=== PATIENT | male | born 1960 | race Caucasian/White ===

== ENCOUNTER 2020-10-05 12:53 | Observation (INO) | payer OTHER, SELFPAY ==
[2020-10-05] VITALS (7 sets, daily range): BP systolic 135–172; BP diastolic 84–94; PULSE 70–99; RESP 15–20; TEMP 36.9; O2SAT 80–96; BMI 31.5
--- NOTE | 2020-10-05 13:32 | XR_ITS ---
WS: [id number] Portable AP upright chest, 10/05/2020 Clinical Data: chest pain Comparison: None. Findings: No nodules, masses or effusions are seen. The heart is normal. The pulmonary vascularity is not increased. No pneumonia or pneumothorax is seen. XR/XR chest 1V portable [id number] Impression: Negative chest.
--- NOTE | 2020-10-05 13:32 | ECG_ITS ---
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 Measurements Intervals [place] Rate: 105 P: 46 AL: 145 QRS: 1 QRSD: 94 T: 29 QT: 314 QTc: 416 Interpretive Statements SINUS TACHYCARDIA WITH OCCASIONAL VENTRICULAR PREMATURE COMPLEXES POSSIBLE LEFT ATRIAL ENLARGEMENT [-0.1mV P WAVE IN V1/V2] ABNORMAL RHYTHM ECG No previous ECG available for comparison Electronically Signed On 10-07-2020 17:17:45 CDT by Salvador Reno M.D. [id number]
[2020-10-05 14:40] LABS: Basophils # 0.1 10^3/uL (0.0-0.1); Basophils % 0.8 %; Eosinophils % 0.1 %; Hematocrit 47.6 % (42.0-52.0); Hemoglobin 15.9 g/dL (11.7-16.6); Lymphocytes # 1.5 10^3/uL (0.8-4.8); Lymphocytes % 9.1 %; Mean Corpuscular HGB Conc 33.4 g/dL (30.0-36.0); Mean Corpuscular Hemoglobin 30.2 pg (28.0-34.0); Mean Corpuscular Volume 90.3 fL (80-94); Mean Platelet Volume 9.6 fL (7.4-10.4); Monocytes % 6.1 %; Neutrophils # 13.72 10^3/uL (1.8-7.7); Neutrophils % 83.3 %; Nucleated Red Blood Cells % 0 %; Platelet Count 248 10^3/cmm (130-400); Red Blood Count 5.27 10^6/uL (4.1-5.3); Red Cell Distribution Width 14.1 % (12.1-15.1); White Blood Count 16.5 10^3/uL (4.0-10.0)
[2020-10-05 15:00] LABS: Alanine Aminotransferase 22 U/L (0-41); Albumin Level 4.4 g/dL (3.5-5.2); Alkaline Phosphatase 64 IU/L (40-130); Anion Gap 17.2 (5-19); Aspartate Amino Transferase 20 U/L (0-40); Blood Urea Nitrogen 12 mg/dL (6-20); Calcium 10.8 mg/dL (8.5-10.5); Carbon Dioxide 27 mmol/L (22-29); Chloride 100 mmol/L (98-107); Globulin 2.1 g/dL (1.3-4.6); Glomerular Filtration Rate 41.5 mL/min (90-130); Glucose 98 mg/dL (65-115); Osmolality Calculated 290 mOsm/kg (285-295); Potassium 4.2 mmol/L (3.5-5.1); Sodium 140 mmol/L (136-145); Total Bilirubin 1.1 mg/dL (0.15-1.2); Total Protein 6.5 g/dL (6.6-8.7)
[2020-10-05 15:05] LABS: Troponin(5th) Baseline 55 ng/L (0-15)
[2020-10-05 17:02] LABS: Troponin 5 2HR 46.11 ng/L (0-15)
[2020-10-05 17:05] LABS: Troponin 5 2HR Delta -8.89 ABS# (0-10)
--- NOTE | 2020-10-05 17:37 | W.ED.ARRPALP ---
Documented by User: Mike Jiang DO 10/06/20 08:18 HPI - Arrhythmia/Palpitations History of Present Illness: HPI narrative: 60-year-old male presents emergency room complaining of weakness dizziness left-sided chest pain. He got up earlier this morning was working outside during the course of his work began to have chest discomfort radiating into his left side of his chest. He was weak and dizzy at various times he had to stop working. Chest pain actually increased to the point where he had to go into the house and began resting. It took approximately 2 hours after he stopped any efforts that the chest pain resolved completely. He had noticed for the previous 2 months he did note a significant decrease in stamina with activities he also noticed some episodes of irregular heartbeat with these episodes. He never had any chest discomfort with those episodes however. Today's episode was significantly more intense. Patient usually does not interact with any healthcare providers and has no significant medical history is on no prescription medications and no significant past medical diagnoses. Has not previously had any heart evaluation. MD complaint: skipped beats , palpitations and irregular heart beat Onset (ago): hour(s) Duration: constant and now resolved Severity: severe Context: occurred during exertion Associated symptoms: Deny anxiety, cough, diaphoresis, muscle cramps, nausea, paresthesias, pre-syncope, sense of impending doom, short of breath, syncope or vomiting Review of Systems Const: Denies: diaphoresis ENMT: Denies: throat pain, ear or mastoid pain, nasal discharge or nasal congestion Card: Denies: syncope or pre-syncope Resp: Denies: dyspnea, productive cough or non-productive cough GI: Denies: nausea or vomiting : Denies: flank pain, dysuria, urinary frequency or urinary urgency Musc: Denies: muscle cramps Skin/Breast: Denies: rash or pruritus Psych: Denies: anxiety PFSH ED PFSH: Medical History Chronic cough Chronic shoulder pain GERD (gastroesophageal reflux disease) GI bleeding History of alcohol abuse PUD (peptic ulcer disease) Recurrent headache Resting tremor Surgical History H/O shoulder surgery L Family History Other Diabetes Social History Smoking and tobacco status: never smoked Alcohol intake: current Alcohol intake frequency: few times a week Alcohol use comment: Formerly heavy intake, less in the last year Substance/Drug Use: never Lives independently: Yes Household members: spouse Marital status: Physical Exam Const: COMMON NORMALS: no acute distress GENERAL APPEARANCE: cooperative and comfortable ORIENTATION/CONSCIOUSNESS: Yes awake, Yes oriented to person, Yes oriented to place and Yes oriented to time HENMT: COMMON NORMALS: normocephalic, atraumatic, hearing grossly normal bilaterally and external ears normal HEAD & SCALP: normocephalic and atraumatic EXTERNAL EAR: Yes external ears normal Neck/C-Spine: COMMON NORMALS: no JVD Resp: COMMON NORMALS: normal respiratory effort, No retractions, No use of accessory muscles and clear to auscultation bilaterally AUSCULTATION: clear to auscultation bilaterally Cardio: COMMON NORMALS: no JVD, regular rate, regular rhythm and No murmurs present (Cardio) RATE: regular rate RHYTHM: regular rhythm GI: COMMON NORMALS: Soft to palpation and No hepatosplenomegaly present AUSCULTATION: Yes normoactive bowel sounds PALPATION: Yes Soft to palpation, No Tenderness to palpation present (GI), No Guarding due to palpation present (GI) and Yes No hepatosplenomegaly present Extremity: COMMON NORMALS: normal to inspection, capillary refill normal, no clubbing, cyanosis or edema, no calf tenderness and no pedal edema Neuro: SENSORIUM/ORIENTATION: Yes oriented to person, Yes oriented to place and Yes oriented to time Skin: COMMON NORMALS: no rashes or lesions noted GENERAL SKIN EXAM: no rashes or lesions noted Course Vital Signs: Vital signs: Vital Signs Temperature 97.9 F 10/06/20 15:35 Pulse Rate 65 10/06/20 15:35 Respiratory Rate 18 10/06/20 15:35 Blood Pressure 120/83 10/06/20 15:35 Pulse Oximetry 93 10/06/20 15:35 MDM - Arrhythmia/Palpitations MDM Narrative: Medical decision making narrative: Patient second troponin is slightly down however he has history of extremely concerning. It sounds as if he has had an anginal equivalent for the last couple of months and now has had a more significant episode today.Patient given aspirin nitro he does have a an acute kidney injury as well although we do not have a baseline creatinine to go off of. Will admit consult cardiology. Lab Data: Labs: Lab Results 10/05/20 10/05/20 10/05/20 Range/Units 14:29 14:29 14:29 WBC 16.5 H (4.0-10.0) 10^3/ uL RBC 5.27 (4.1-5.3) 10^6/u L Hgb 15.9 (11.7-16.6) g/dL Hct 47.6 (42.0-52.0) % MCV 90.3 (80-94) fL MCH 30.2 (28.0-34.0) pg MCHC 33.4 (30.0-36.0) g/dL RDW 14.1 (12.1-15.1) % Plt Count 248 (130-400) 10^3/c mm MPV 9.6 (7.4-10.4) fL Neut % (Auto) 83.3 % Lymph % (Auto) 9.1 % [place] % (Auto) 6.1 % Eos % (Auto) 0.1 % Baso % (Auto) 0.8 % Neut # (Auto) 13.72 H (1.8-7.7) 10^3/u L Lymph # (Auto) 1.5 (0.8-4.8) 10^3/u L [place] # (Auto) 1.0 H (0.2-0.9) 10^3/u L Eos # (Auto) 0.0 (0.0-0.8) 10^3/u L Baso # (Auto) 0.1 (0.0-0.1) 10^3/u L Nucleated RBC % (a uto) 0 % Nucleated RBCs # 0.0 /100WBC Sodium 140 (136-145) mmol/L Potassium 4.2 (3.5-5.1) mmol/L Chloride 100 (98-107) mmol/L Carbon Dioxide 27 (22-29) mmol/L Anion Gap 17.2 (5-19) BUN 12 (6-20) mg/dL Creatinine 1.7 H (0.7-1.2) mg/dL GFR Calculation 41.5 L (90-130) mL/min Glucose 98 (65-115) mg/dL Estimat Average Gl ucose Hemoglobin A1c (4.0-6.0) % Calculated Osmolal ity 290 (285-295) mOsm/k g Calcium 10.8 H (8.5-10.5) mg/dL Total Bilirubin 1.1 (0.15-1.2) mg/dL AST 20 (0-40) U/L ALT 22 (0-41) U/L Alkaline Phosphata se 64 (40-130) IU/L Creatine Kinase (39-308) U/L Troponin T Baselin e 55 H (0-15) ng/L Troponin T 120 Min lower [place] (0-15) ng/L Delta Troponin T (0-10) ABS# Total Protein 6.5 L (6.6-8.7) g/dL Albumin 4.4 (3.5-5.2) g/dL Globulin 2.1 (1.3-4.6) g/dL Triglycerides (0-150) mg/dL Cholesterol (0-200) mg/dL LDL Cholesterol, C alc (50-129) mg/dL HDL Cholesterol (60-100) mg/dL LDL/HDL Ratio (0.00-3.22) RATI O Cholesterol/HDL Ra nicolasa (1.0-5.00) mg/dL 10/05/20 10/05/20 10/05/20 Range/Units 14:29 14:29 16:24 WBC (4.0-10.0) 10^3/ uL RBC (4.1-5.3) 10^6/u L Hgb (11.7-16.6) g/dL Hct (42.0-52.0) % MCV (80-94) fL MCH (28.0-34.0) pg MCHC (30.0-36.0) g/dL RDW (12.1-15.1) % Plt Count (130-400) 10^3/c mm MPV (7.4-10.4) fL Neut % (Auto) % Lymph % (Auto) % [place] % (Auto) % Eos % (Auto) % Baso % (Auto) % Neut # (Auto) (1.8-7.7) 10^3/u L Lymph # (Auto) (0.8-4.8) 10^3/u L [place] # (Auto) (0.2-0.9) 10^3/u L Eos # (Auto) (0.0-0.8) 10^3/u L Baso # (Auto) (0.0-0.1) 10^3/u L Nucleated RBC % (a uto) % Nucleated RBCs # /100WBC Sodium (136-145) mmol/L Potassium (3.5-5.1) mmol/L Chloride (98-107) mmol/L Carbon Dioxide (22-29) mmol/L Anion Gap (5-19) BUN (6-20) mg/dL Creatinine (0.7-1.2) mg/dL GFR Calculation (90-130) mL/min Glucose (65-115) mg/dL Estimat Average Gl ucose 111 Hemoglobin A1c 5.5 (4.0-6.0) % Calculated Osmolal ity (285-295) mOsm/k g Calcium (8.5-10.5) mg/dL Total Bilirubin (0.15-1.2) mg/dL AST (0-40) U/L ALT (0-41) U/L Alkaline Phosphata se (40-130) IU/L Creatine Kinase 391 H* (39-308) U/L Troponin T Baselin e (0-15) ng/L Troponin T 120 Min lower [place] 46.11 H (0-15) ng/L Delta Troponin T -8.89 L (0-10) ABS# Total Protein (6.6-8.7) g/dL Albumin (3.5-5.2) g/dL Globulin (1.3-4.6) g/dL Triglycerides 214 H (0-150) mg/dL Cholesterol 241 H (0-200) mg/dL LDL Cholesterol, C alc 145 H (50-129) mg/dL HDL Cholesterol 53 L (60-100) mg/dL LDL/HDL Ratio 2.74 (0.00-3.22) RATI O Cholesterol/HDL Ra nicolasa 4.55 (1.0-5.00) mg/dL Discharge Plan Discharge Patient Disposition: Admitted As Inpatient Admit Provider: Christian Mendez Clinical Impression: Chest pain, Troponin level elevated, Acute kidney injury, Leukocytosis Condition: Stable Coding Level of Care Code ED Student Worker for Chg Fwd Exam Comprehensive Documented by User: Domenico Gurrola MD 10/06/20 18:29 PFSH ED PFSH: Medical History Chronic cough Chronic shoulder pain GERD (gastroesophageal reflux disease) GI bleeding History of alcohol abuse PUD (peptic ulcer disease) Recurrent headache Resting tremor Surgical History H/O shoulder surgery L Family History Other Diabetes Social History Smoking and tobacco status: never smoked Alcohol intake: current Alcohol intake frequency: few times a week Alcohol use comment: Formerly heavy intake, less in the last year Substance/Drug Use: never Lives independently: Yes Household members: spouse Marital status: Course Vital Signs: Vital signs: Vital Signs Temperature 97.9 F 10/06/20 15:35 Pulse Rate 65 10/06/20 15:35 Respiratory Rate 18 10/06/20 15:35 Blood Pressure 120/83 10/06/20 15:35 Pulse Oximetry 93 10/06/20 15:35 MDM - Arrhythmia/Palpitations Lab Data: Labs: Lab Results 10/05/20 10/05/20 10/05/20 Range/Units 14:29 14:29 14:29 WBC 16.5 H (4.0-10.0) 10^3/ uL RBC 5.27 (4.1-5.3) 10^6/u L Hgb 15.9 (11.7-16.6) g/dL Hct 47.6 (42.0-52.0) % MCV 90.3 (80-94) fL MCH 30.2 (28.0-34.0) pg MCHC 33.4 (30.0-36.0) g/dL RDW 14.1 (12.1-15.1) % Plt Count 248 (130-400) 10^3/c mm MPV 9.6 (7.4-10.4) fL Neut % (Auto) 83.3 % Lymph % (Auto) 9.1 % [place] % (Auto) 6.1 % Eos % (Auto) 0.1 % Baso % (Auto) 0.8 % Neut # (Auto) 13.72 H (1.8-7.7) 10^3/u L Lymph # (Auto) 1.5 (0.8-4.8) 10^3/u L [place] # (Auto) 1.0 H (0.2-0.9) 10^3/u L Eos # (Auto) 0.0 (0.0-0.8) 10^3/u L Baso # (Auto) 0.1 (0.0-0.1) 10^3/u L Nucleated RBC % (a uto) 0 % Nucleated RBCs # 0.0 /100WBC Sodium 140 (136-145) mmol/L Potassium 4.2 (3.5-5.1) mmol/L Chloride 100 (98-107) mmol/L Carbon Dioxide 27 (22-29) mmol/L Anion Gap 17.2 (5-19) BUN 12 (6-20) mg/dL Creatinine 1.7 H (0.7-1.2) mg/dL GFR Calculation 41.5 L (90-130) mL/min Glucose 98 (65-115) mg/dL Estimat Average Gl ucose Hemoglobin A1c (4.0-6.0) % Calculated Osmolal ity 290 (285-295) mOsm/k g Calcium 10.8 H (8.5-10.5) mg/dL Total Bilirubin 1.1 (0.15-1.2) mg/dL AST 20 (0-40) U/L ALT 22 (0-41) U/L Alkaline Phosphata se 64 (40-130) IU/L Creatine Kinase (39-308) U/L Troponin T Baselin e 55 H (0-15) ng/L Troponin T 120 Min lower [place] (0-15) ng/L Delta Troponin T (0-10) ABS# Total Protein 6.5 L (6.6-8.7) g/dL Albumin 4.4 (3.5-5.2) g/dL Globulin 2.1 (1.3-4.6) g/dL Triglycerides (0-150) mg/dL Cholesterol (0-200) mg/dL LDL Cholesterol, C alc (50-129) mg/dL HDL Cholesterol (60-100) mg/dL LDL/HDL Ratio (0.00-3.22) RATI O Cholesterol/HDL Ra nicolasa (1.0-5.00) mg/dL 10/05/20 10/05/20 10/05/20 Range/Units 14:29 14:29 16:24 WBC (4.0-10.0) 10^3/ uL RBC (4.1-5.3) 10^6/u L Hgb (11.7-16.6) g/dL Hct (42.0-52.0) % MCV (80-94) fL MCH (28.0-34.0) pg MCHC (30.0-36.0) g/dL RDW (12.1-15.1) % Plt Count (130-400) 10^3/c mm MPV (7.4-10.4) fL Neut % (Auto) % Lymph % (Auto) % [place] % (Auto) % Eos % (Auto) % Baso % (Auto) % Neut # (Auto) (1.8-7.7) 10^3/u L Lymph # (Auto) (0.8-4.8) 10^3/u L [place] # (Auto) (0.2-0.9) 10^3/u L Eos # (Auto) (0.0-0.8) 10^3/u L Baso # (Auto) (0.0-0.1) 10^3/u L Nucleated RBC % (a uto) % Nucleated RBCs # /100WBC Sodium (136-145) mmol/L Potassium (3.5-5.1) mmol/L Chloride (98-107) mmol/L Carbon Dioxide (22-29) mmol/L Anion Gap (5-19) BUN (6-20) mg/dL Creatinine (0.7-1.2) mg/dL GFR Calculation (90-130) mL/min Glucose (65-115) mg/dL Estimat Average Gl ucose 111 Hemoglobin A1c 5.5 (4.0-6.0) % Calculated Osmolal ity (285-295) mOsm/k g Calcium (8.5-10.5) mg/dL Total Bilirubin (0.15-1.2) mg/dL AST (0-40) U/L ALT (0-41) U/L Alkaline Phosphata se (40-130) IU/L Creatine Kinase 391 H* (39-308) U/L Troponin T Baselin e (0-15) ng/L Troponin T 120 Min lower [place] 46.11 H (0-15) ng/L Delta Troponin T -8.89 L (0-10) ABS# Total Protein (6.6-8.7) g/dL Albumin (3.5-5.2) g/dL Globulin (1.3-4.6) g/dL Triglycerides 214 H (0-150) mg/dL Cholesterol 241 H (0-200) mg/dL LDL Cholesterol, C alc 145 H (50-129) mg/dL HDL Cholesterol 53 L (60-100) mg/dL LDL/HDL Ratio 2.74 (0.00-3.22) RATI O Cholesterol/HDL Ra nicolasa 4.55 (1.0-5.00) mg/dL Discharge Plan Discharge Patient Disposition: Admitted As Inpatient Admit Provider: Christian Mendez Clinical Impression: Chest pain, Troponin level elevated, Acute kidney injury, Leukocytosis Condition: Stable Coding Level of Care Code ED Student Worker for [place] Fwd Exam Comprehensive
[2020-10-05] MEDS: aspirin 81 mg Chew Tablet 324 MG PO (18:19)
[2020-10-05] MEDS: nitroglycerin 1 gm/inch oint Pkt 1 INCH TOPICAL (18:20)
[2020-10-05] MEDS: sodium chloride 0.9% 1,000 ML 999 ML IV (18:24)
--- NOTE | 2020-10-05 19:32 | ECG_ITS ---
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 Measurements Intervals [place] Rate: 83 P: 54 [place]: 146 QRS: 22 QRSD: 87 T: 32 QT: 363 QTc: 427 Interpretive Statements SINUS RHYTHM Compared to ECG 10/05/2020 13:07:07 Sinus tachycardia no longer present Ventricular premature complex(es) no longer present Electronically Signed On 10-07-2020 17:24:39 CDT by Salvador Reno M.D. [email or web address]/[id number]
--- NOTE | 2020-10-05 19:48 | P.HP_ITS ---
Providers/Chief Complaint Primary Care Provider: Val Chisholm MD Chief Complaint: CP W/EXERTION, HTN, IRR HEART RATE History of Present Illness Pleasant 60-year-old gentleman with history of longstanding GERD, history of PUD, GI bleeding, chronic/recurrent cough, remote history of heavy alcohol intake, substantially reduced about a year ago, recurrent headache for which he takes Excedrin sometimes 3-4 times a day for GERD he takes Tums daily, sometimes multiple times a day, was never investigated by upper endoscopy, with chronic r esting tremor, is accompanied by his in ER after an episode of chest pain while working in the yard that lasted about 2 hours despite stopping all activity earlier today, severe, initially started on the left side with chest pressure and pain together, subsequently migrating to the right side. It went away on its own. He did not take any thing to relieve the pain. He reports that over the last 2 months he has been getting increasingly fatigued with exertion, with some palpitations as well. He denies lower extremity swelling or orthopnea. He is a never smoker. Blood pressures noted elevated in ER, although he says previously up until about a year ago blood pressures were checked regularly and were good. He has not monitored them in about a year. He states he and his measured his blood pressure at home today prior to coming to ER, and it was showing high, and warning about irregular heartbeat. He reports the symptoms did not necessarily feel like heartburn. Although he did have quite a few cookies day before, and did have quite a bit of heartburn which he usually gets from the oil in the cookies. He denies any fever, chills, sore throat, runny nose, sneezing. No nausea vomiting or diarrhea. In ER BP 151/94, HR 99 initially, 74 subsequently, respiratory rate 18, temp 98.4, saturation 94% on room air. Chest x-ray is unremarkable, EKG is noted unremarkable, troponin at baseline 55, at 2 hours 46.11. Creatinine noted is 1.7 with not entirely clear baseline, back in 2016 creatinine 1.3. He received aspirin, nitroglycerin paste. 1 L fluid bolus. Review of Systems Const: Denies: fever(s), chills, body aches or malaise Eyes: Denies: change in vision or eye redness ENMT: Denies: throat pain, oral sores or ear or mastoid pain Card: Reports: chest pain, palpitations and dyspnea on exertion; Denies: edema, swelling of feet/ankles, pre-syncope or orthopnea Resp: Denies: dyspnea, productive cough, change in phlegm color or hemoptysis GI: Reports: heartburn; Denies: abdominal pain, nausea, vomiting, diarrhea, constipation, hematochezia or melena : Denies: flank pain, difficulty urinating, urinary frequency or hematuria Musc: Denies: back pain, joint swelling or joint redness Skin/Breast: Denies: rash, sores or new lesions Neuro: Denies: headache(s), numbness in extremities, weakness in extremities, dizziness, confusion or seizure-like activity Endo: Denies: polyuria or polydipsia Dwain/Lymph: Denies: easy bleeding or purpura All/Imm: Denies: urticaria, throat swelling or tongue swelling Medications/Allergies Home Medications Medication Instructions Recorded Confirmed Last Taken Type No Known Home Medications 10/05/20 10/05/20 Unknown History Allergies Allergy/AdvReac Type Severity Reaction Status Date / Time No Known Allergies Allergy Unverified 10/05/20 17:33 PFSH Acute PFSH: Medical History (Updated 10/05/20 @ 20:06 by Christian Mendez MD) Chronic cough Chronic shoulder pain GERD (gastroesophageal reflux disease) GI bleeding History of alcohol abuse PUD (peptic ulcer disease) Recurrent headache Resting tremor Surgical History H/O shoulder surgery L Family History (Updated 10/05/20 @ 19:57 by Christian Mendez MD) Other Diabetes Social History (Updated 10/05/20 @ 19:58 by Christian Mendez MD) Smoking and tobacco status: never smoked Alcohol intake: current Alcohol intake frequency: few times a week Alcohol use comment: Formerly heavy intake, less in the last year Substance/Drug Use: never Lives independently: Yes Household members: spouse Marital status: Vitals/I&O/Wt Last Vital Signs Temp 98.4 F 10/05/20 13:02 Pulse 79 10/05/20 18:54 Resp 20 H 07/09/21 18:54 BP 158/93 10/05/20 18:54 Pulse Ox 80 L 10/05/20 18:54 Weight last 48 hrs Weight 99.79 kg Physical Exam Narrative: EXAM NARRATIVE: in the room Const: COMMON NORMALS: no acute distress and patient oriented x3 NUTRITIONAL APPEARANCE: overweight HENMT: COMMON NORMALS: oropharynx normal Neck/C-Spine: COMMON NORMALS: no JVD Resp: COMMON NORMALS: normal respiratory effort and clear to auscultation bilaterally AUSCULTATION: clear to auscultation bilaterally Cardio: COMMON NORMALS: no JVD, regular rhythm, S1 normal heart sound present, S2 normal heart sound present and No murmurs present (Cardio) RHYTHM: regular rhythm HEART SOUNDS: S1 normal heart sound present and S2 normal heart sound present GI: COMMON NORMALS: Normal to inspection, nondistended, normoactive bowel sounds present, Soft to palpation and non-tender PALPATION: Yes Soft to palpation Extremity: COMMON NORMALS: no joint enlargement and no pedal edema Neuro: COMMON NORMALS: patient oriented x3 and moves all extremities Skin: COMMON NORMALS: no rashes or lesions noted GENERAL SKIN EXAM: no rashes or lesions noted Data : 10/05/20 14:29 10/05/20 14:29 A&P Assessment and plan (1) Chest pain: Complete troponin and EKG series. Request TTE. Monitor on telemetry. Check D-dimer. Start PPI. Cardiology consultation obtained by ER physician, with concern with risk factors with overweight, noted elevated blood pressure in ER, with suspicious symptoms, consideration given to additional assessment/risk stratification possibly by coronary angiography. Check lipid profile. A1c. Monitor blood pressures. Check CK. Reports also some palpitations, says that blood pressure cuff read irregular at home, but does have chronic resting tremor, and this is also visible on the monitor currently. Status: Acute (2) Troponin level elevated: As above. Currently no chest pain. Troponin with moderate elevation, EKG unremarkable. Status: Acute (3) Acute kidney injury: Acute kidney injury with his chronic kidney disease. Appears likely chronic kidney disease, possibly secondary to undiagnosed hypertension. Creatinine 1.7. Requested kidney ultrasound. UA. Urine studies. CK. Takes Excedrin sometimes 3-4 times a day. Status: Acute (4) GERD (gastroesophageal reflux disease): Longstanding GERD, history of PUD, bleeding ulcers, never had upper endoscopy. Discussed with him to seek additional evaluation by upper endoscopy with PCP given his age, persistent symptoms of dyspepsia. He takes Tums multiple times a day. Start PPI. He verbalized understanding, will be seeking additional evaluation by EGD with his PCP. Status: Acute (5) Recurrent headache: Takes Excedrin 3-4 times a day. Status: Acute (6) Leukocytosis: Unclear cause for leukocytosis. He is afebrile. On initial vitals heart rate 99, sinus tachycardia, however, subsequent values in the 70s. May have been some dehydration after working outside. Possibly improved with 1 L bolus. He does also report chronic cough, longstanding GERD. Discussed with him possibility of recurrent aspiration events. No gross aspiration noted on x-ray, however, this could certainly be contributing to his chronic cough. Monitor for any changes in symptoms. He states for about 2 months he has been getting dyspneic/fatigue and on exertion. This appears not new symptoms. He gets recurrent headaches. Chronic cough. Otherwise denies muscle aches, chills, sore throat, runny nose Status: Acute (7) Chronic cough: Possibly secondary to GERD/reflux. Start PPI. He will be seeking additional assessment by endoscopy. Check D-dimer. May benefit from outpatient PFT. Continue follow-up with PCP. Status: Acute Attestations Medical Necessity Statement*: Place in observation for additional assessment and management following 2-hour chest episode prior to admission with risk factors of CAD, cardiology assessment in the setting of troponin elevation in the setting of acute kidney injury. Coding Level of Care Code Acute Electrical Manufacturing Technician for [facility] Diagnoses Chest pain R07.9 Troponin level elevated R77.8 Acute kidney injury N17.9 GERD (gastroesophageal reflux disease) K21.9 Recurrent headache R51.9 Leukocytosis D72.829 Chronic cough R05
[2020-10-05 20:18] LABS: Troponin 5 6HR 36.65 ng/L (0-15)
[2020-10-05 20:32] LABS: Chol HDL Ratio 4.55 mg/dL (1.0-5.00); Cholesterol 241 mg/dL (0-200); HDL Cholesterol 53 mg/dL (60-100); LDL Cholesterol Calculated 145 mg/dL (50-129); LDL HDL Ratio 2.74 RATIO (0.00-3.22); Triglycerides 214 mg/dL (0-150)
[2020-10-05 20:35] LABS: Creatine Phosphokinase 391 U/L (39-308)
[2020-10-05 20:36] LABS: D Dimer <= 0.27 ug/mIFEU (0-0.59)
[2020-10-05 21:18] LABS: Add Urine Microscopic? NO; Charge for UA Resulting for Rev
[2020-10-05 21:21] LABS: Bilirubin Urine Neg (Negative); Blood Urine Neg (Negative); Glucose Urine UA Norm (Normal); Ketones Urine Negative (Negative); Leukocyte Esterase Urine Negative (Negative); Nitrate Urine Negative (Negative); Protein Urine Neg (Negative); Specific Gravity, Urine 1.005 (1.005-1.030); Urine Appearance Clear (CLEAR); Urine Color Yellow (Yellow); Urobilinogen Urine Norm (Negative); pH Urine 7 (5-7)
[2020-10-05 21:37] LABS: Urine Creatinine 81 mg/dL (39-259); Urine Random Sodium 58 mmol/L
[2020-10-05] MEDS: metoprolol tartrate 25 mg Tablet 12.5 MG PO (22:40)
[2020-10-05] MEDS: sodium chloride 0.9% 1,000 ML 150 ML IV (22:40)
[2020-10-05] MEDS: pantoprazole DR 40 mg Tablet PO (22:40)
[2020-10-05 23:29] LABS: Estmated Average Glucose 111; Hemoglobin A1C 5.5 % (4.0-6.0)
[2020-10-06] VITALS (10 sets, daily range): BP systolic 105–147; BP diastolic 61–83; PULSE 61–70; RESP 13–26; TEMP 36.6–37.1; O2SAT 93–96
[2020-10-06] MEDS: sodium chloride 0.9% 1,000 ML 150 ML IV (05:13)
[2020-10-06 05:26] LABS: Basophils # 0.1 10^3/uL (0.0-0.1); Basophils % 1.1 %; Eosinophils # 0.1 10^3/uL (0.0-0.8); Eosinophils % 1.4 %; Hematocrit 40.6 % (42.0-52.0); Hemoglobin 13.3 g/dL (11.7-16.6); Lymphocytes # 1.4 10^3/uL (0.8-4.8); Lymphocytes % 15.2 %; Mean Corpuscular HGB Conc 32.8 g/dL (30.0-36.0); Mean Corpuscular Hemoglobin 30.2 pg (28.0-34.0); Mean Corpuscular Volume 92.1 fL (80-94); Mean Platelet Volume 9.8 fL (7.4-10.4); Monocytes # 0.8 10^3/uL (0.2-0.9); Monocytes % 8.2 %; Neutrophils # 6.89 10^3/uL (1.8-7.7); Neutrophils % 73.6 %; Nucleated Red Blood Cells % 0 %; Platelet Count 197 10^3/cmm (130-400); Red Blood Count 4.41 10^6/uL (4.1-5.3); Red Cell Distribution Width 14.4 % (12.1-15.1); White Blood Count 9.4 10^3/uL (4.0-10.0)
[2020-10-06 05:36] LABS: Anion Gap 12.4 (5-19); Blood Urea Nitrogen 13 mg/dL (6-20); Calcium 8.3 mg/dL (8.5-10.5); Carbon Dioxide 24 mmol/L (22-29); Chloride 108 mmol/L (98-107); Glomerular Filtration Rate 47.9 mL/min (90-130); Glucose 98 mg/dL (65-115); Osmolality Calculated 290 mOsm/kg (285-295); Potassium 4.4 mmol/L (3.5-5.1); Sodium 140 mmol/L (136-145)
--- NOTE | 2020-10-06 08:42 | P.CONIM_ITS ---
Providers/Reason For Consult Consulting Physician/Specialty*: Salvador Reno MD/Cardiology Reason for Consult*: Chest pain Requesting Physician: Dr Mendez Attending Physician: Christian Mendez Primary Care Provider: Val Chisholm MD History of Present Illness History of Present Illness Baldev Parham is a 60 year old male with past medical history of hypertension who presented with severe substernal chest pain yesterday. According to patient he was working in the yard when he started noticing substernal chest discomfort with some radiation to the left arm. This lasted for about 45 minutes. He did not have any significant pain in the past however he has been feeling low in energy and gets easily short of breath on exertion over the last few months. His blood pressure at presentation was elevated and systolic was 170s. EKG did not show ischemia. Initial troponin was elevated at 55 however trended down. Patient is chest pain-free at this time. Review of Systems Narrative: Const Denies: fever(s), chills, body aches or malaise Eyes Denies: change in vision or eye redness ENMT Denies: throat pain, oral sores or ear or mastoid pain Card Reports: chest pain, palpitations and dyspnea on exertion; Denies: edema, swelling of feet/ankles, pre-syncope or orthopnea Resp Denies: dyspnea, productive cough, change in phlegm color or hemoptysis GI Reports: heartburn; Denies: abdominal pain, nausea, vomiting, diarrhea, constipation, hematochezia or melena Denies: flank pain, difficulty urinating, urinary frequency or hematuria Musc Denies: back pain, joint swelling or joint redness Skin/Breast Denies: rash, sores or new lesions Neuro Denies: headache(s), numbness in extremities, weakness in extremities, dizzines s, confusion or seizure-like activity Endo Denies: polyuria or polydipsia Dwain/Lymph Denies: easy bleeding or purpura All/Imm Denies: urticaria, throat swelling or tongue swelling Meds/Allergies Home Medications and Allergies Home Medications Medication Instructions Recorded Confirmed Last Taken Type amlodipine 2.5 mg PO DAILY #90 tab 10/07/20 Unknown Rx aspirin 81 mg PO DAILY #90 tab 10/07/20 Unknown Rx metoprolol succinate 25 mg PO DAILY #90 tab 10/07/20 Unknown Rx pantoprazole 40 mg PO BID #180 tab 10/07/20 Unknown Rx Allergies Allergy/AdvReac Type Severity Reaction Status Date / Time No Known Allergies Allergy Unverified 10/05/20 17:33 Current Medications Current Medications Generic Name Dose Route Start Last Admin Trade Name Kat PRN Reason Stop Dose Admin Sodium Chloride 1,000 mls @ 150 mls/hr 10/05/20 22:10 10/06/20 05:13 Sodium Chloride 0.9% IV 150 mls/hr .[id number] SHELLY Administration Metoprolol Tartrate 12.5 mg 10/05/20 22:10 10/05/20 22:40 Metoprolol Tartrate 25 Mg Tablet PO 12.5 mg BID@0900,2100 SHELLY Administration Pantoprazole Sodium 40 mg 10/05/20 22:10 10/05/20 22:[address] 40 Mg Tablet PO 40 mg BID SHELLY Administration PFSH Acute PFSH: Medical History (Updated 10/09/20 @ 10:52 by Salvador Reno M.D) Chest pain Chronic cough Chronic shoulder pain GERD (gastroesophageal reflux disease) GI bleeding History of alcohol abuse PUD (peptic ulcer disease) Recurrent headache Resting tremor Surgical History H/O shoulder surgery L Family History Other Diabetes Social History Smoking and tobacco status: never smoked Alcohol intake: current Alcohol intake frequency: few times a week Lives independently: Yes Household members: spouse Marital status: Vitals/I&O/Wt Last Vital Signs Temp 98.1 F 10/06/20 07:59 Pulse 67 10/06/20 07:59 Resp 15 10/06/20 07:59 BP 116/71 10/06/20 07:59 Pulse Ox 95 10/06/20 07:59 10/05/20 10/06/20 10/06/20 22:59 06:59 14:59 Intake Total 1000 / 1000 980 / 1980 Output Total 200 / 200 Balance 1000 / 1000 780 / 1780 Weight last 48 hrs Weight 220 lb Physical Exam Narrative: EXAM NARRATIVE: GENERAL: Patient is alert, awake and oriented x3. [] NECK: No jugular vein distension. [] HEENT: No cyanosis. No icterus. No pallor. [] HEART: Regular S1 and S2. No murmur, rub or gallop. [] LUNGS: Clear to auscultate bilaterally. [] ABDOMEN: Soft, nontender and nondistended. Positive bowel sounds. No guarding, rebound or tenderness. [] CENTRAL NERVOUS SYSTEM: Grossly nonfocal. [] EXTREMITIES: Lower extremities with 1+ edema bilaterally. Pulses palpable in the lower extremities, both dorsalis pedis and posterior tibial. [] A&P Assessment and plan (1) GERD (gastroesophageal reflux disease): Status: Acute (2) Acute kidney injury: Status: Acute (3) Chest pain: Status: Acute (4) Hypertension: Status: Acute Patient has presented with chest pain symptoms that are concerning for unstable angina. His troponins were mildly elevated and trended down since coming to the hospital. His creatinine is elevated. We do not have a baseline for creatinine. We will continue with IV hydration for 1 more day. If creatinine stabilizes or improves, we will proceed with coronary angiogram to rule out coronary artery disease as he has risk factor of uncontrolled hypertension(not taking any medications) and also had elevated troponin. Continue aspirin. Echocardiogram ordered. N.p.o. past midnight for coronary angiogram tomorrow. I had a detailed discussion regarding risks and benefits of the procedure. Patient and family understands the risks and benefits and wants to proceed with the procedure. Thank you for involving us with care of this patient. We will continue to follow. Please call with questions. Coding Level of Care Code Acute Housing Case Manager for [facility] Fwd Diagnoses GERD (gastroesophageal reflux disease) K21.9 Acute kidney injury N17.9 Chest pain R07.9 Hypertension I10
[2020-10-06] MEDS: aspirin 325 mg Tablet PO (09:01)
[2020-10-06] MEDS: pantoprazole DR 40 mg Tablet PO ×2 (09:01→17:44)
[2020-10-06] MEDS: metoprolol tartrate 25 mg Tablet 12.5 MG PO ×2 (09:02→20:16)
--- NOTE | 2020-10-06 09:06 | PC.NURSE ---
Dr kenny at bedside for assessment and plan of care verbal instructions received to start cardiac diet for today then NPO after midnight tonight also decrease fluids to 75mls/hr
[2020-10-06] MEDS: sodium chloride 0.9% 1,000 ML 75 ML IV (17:44)
--- NOTE | 2020-10-06 18:35 | PM.PN ---
Subjective Subjective: Interval history: Today he is doing better. No recurrence of chest pain. Discussed with him deficits in renal function, acute kidney injury versus chronic kidney disease, with chronic kidney disease likely given findings on ultrasonography with cortical atrophy. Possibly secondary to episodic hypertension. Encouraged him to monitor blood pressures at home. Encouraged additional follow-up for additional work-up with primary provider, possibly consideration of referral to nephrology. He verbalized understanding. He has had a discussion with cardiology today as well, and they have planned for additional evaluation by coronary angiography tomorrow. Vitals/I&O/Wt Last Vital Signs Temp 97.9 F 10/06/20 15:35 Pulse 65 10/06/20 15:35 Resp 18 10/06/20 15:35 BP 120/83 10/06/20 15:35 Pulse Ox 93 10/06/20 15:35 10/06/20 10/06/20 10/06/20 06:59 14:59 22:59 Intake Total 980 / 1980 1710.0 / 1710.0 235 / 1945.0 Output Total 200 / 200 350 / 350 Balance 780 / 1780 1360.0 / 1360.0 235 / 1595.0 Weight last 48 hrs Weight 99.79 kg Physical Exam Narrative: EXAM NARRATIVE: in the room Const: COMMON NORMALS: no acute distress and patient oriented x3 NUTRITIONAL APPEARANCE: overweight HENMT: COMMON NORMALS: oropharynx normal Neck/C-Spine: COMMON NORMALS: no JVD Resp: COMMON NORMALS: normal respiratory effort and clear to auscultation bilaterally AUSCULTATION: clear to auscultation bilaterally Cardio: COMMON NORMALS: no JVD, regular rhythm, S1 normal heart sound present, S2 normal heart sound present and No murmurs present (Cardio) RHYTHM: regular rhythm HEART SOUNDS: S1 normal heart sound present and S2 normal heart sound present GI: COMMON NORMALS: Normal to inspection, nondistended, normoactive bowel sounds present, Soft to palpation and non-tender PALPATION: Yes Soft to palpation Extremity: COMMON NORMALS: no joint enlargement and no pedal edema Neuro: COMMON NORMALS: patient oriented x3 and moves all extremities Skin: COMMON NORMALS: no rashes or lesions noted GENERAL SKIN EXAM: no rashes or lesions noted Data : 10/06/20 05:00 10/06/20 05:00 A&P Assessment and plan (1) Chest pain: Chest pain has resolved. They have discussed with cardiology and planned for additional evaluation by coronary angiography tomorrow. N.p.o. after midnight. D-dimer normal. Started on PPI. A1c not suggestive of diabetes. Check lipid profile. A1c. Monitor blood pressures. Minimal elevation of CK 391. May benefit from moderate to high intensity statin once CK normalizes. Reports also some palpitations, says that blood pressure cuff read irregular at home, but does have chronic resting tremor, and this is also visible on the monitor currently. Continue telemetry monitoring. Left atrium not dilated on echo. Status: Acute (2) Troponin level elevated: As above. Currently no chest pain. Troponin with moderate elevation, EKG unremarkable. Status: Acute (3) Acute kidney injury: Acute kidney injury on chronic kidney disease. Minute elevation of CK. Discussed with him findings on ultrasonography suggestive of chronic kidney disease. Possibly acute kidney injury on chronic kidney disease, possibly secondary to dehydration, given some response to fluid challenge with improvement today and creatinine down to 1.5. Encouraged him to closely monitor blood pressure due to concern for episodic hypertension. Encouraged to follow-up with PCP for additional evaluation, consideration of referral to nephrology. Minute CK elevation, monitor if had worse rhabdomyolysis from working outside which is improved. Additionally takes Excedrin 3-4 times a day, encouraged him to avoid excessive use as this may contribute in large doses to temporary or long-term kidney damage. Status: Acute (4) GERD (gastroesophageal reflux disease): Longstanding GERD, history of PUD, bleeding ulcers, never had upper endoscopy. Discussed with him to seek additional evaluation by upper endoscopy with PCP given his age, persistent symptoms of dyspepsia. He takes Tums multiple times a day. Started PPI. He verbalized understanding, will be seeking additional evaluation by EGD with his PCP. May be exacerbated by frequent Excedrin use. Status: Acute (5) Recurrent headache: Takes Excedrin 3-4 times a day. Status: Acute (6) Leukocytosis: Resolved. Possibly stress-induced, possibly dehydration secondary to working outside. Monitor for any changes in symptoms, at this time does not appear to have symptoms of acute infection. Unclear cause for initial leukocytosis. He is afebrile. On initial vitals heart rate 99, sinus tachycardia, however, subsequent values in the 70s. May have been some dehydration after working outside. Possibly improved with 1 L bolus. He does also report chronic cough, longstanding GERD. Discussed with him possibility of recurrent aspiration events. No gross aspiration noted on x-ray, however, this could certainly be contributing to his chronic cough. No suggestion of pneumonia on x-ray. D-dimer is normal. He states for about 2 months he has been getting dyspneic/fatigue and on exertion. This appears not new symptoms. He gets recurrent headaches. Chronic cough. Otherwise denies muscle aches, chills, sore throat, runny nose Status: Acute (7) Chronic cough: Possibly secondary to GERD/reflux. Start PPI. He will be seeking additional assessment by endoscopy. Normal D-dimer. May benefit from outpatient PFT. Continue follow-up with PCP. Status: Acute Attestations Medical Necessity Statement*: Continue hospitalization for assessment management of chest pain, risk factors of CAD, additional Cardiologic assessment with planned coronary angiography in the setting of acute kidney injury on chronic kidney disease on presentation. Coding Level of Care Code Acute Railroad Carman for [facility] Fwd Exam Comprehensive Diagnoses Chest pain R07.9 Troponin level elevated R77.8 Acute kidney injury N17.9 GERD (gastroesophageal reflux disease) K21.9 Recurrent headache R51.9 Leukocytosis D72.829 Chronic cough R05
--- NOTE | 2020-10-06 22:10 | USR_ITS ---
PROCEDURE INFORMATION: Exam: US Retroperitoneal; Complete; Kidneys and Bladder Exam date and time: 10/06/2020 10:10 PM Age: 60 years old Clinical indication: Abnormal findings; Abnormal lab test; Abnormal kidney function lab tests; Additional info: Garett vs ckd TECHNIQUE: Imaging protocol: Real-time ultrasound of the retroperitoneum with image documentation. Complete exam focused on the kidneys and bladder. COMPARISON: No relevant prior studies available. FINDINGS: Right kidney: Bilateral renal parenchymal thinning with secondary lipomatosis. Right kidney measures 10.4 cm in length. No renal mass or hydronephrosis. Left kidney: Left kidney measures 11.2 cm in length. No renal mass or hydronephrosis. Urinary bladder: Normal bladder morphology. US/US renal BI with PV bladder IMPRESSION: Bilateral renal parenchymal thinning, without hydronephrosis.
--- NOTE | 2020-10-06 22:10 | USCV_ITS ---
Prasad Baldev Age: 60 Gender: M : 1960 Exam Date: 10/06/2020 08:35 Ordering Phys: Christian Mendez MD Technologist: Jenny Longoria Exam Location: [facility] – [place] Indication: Elevated troponin, chest pain, dypsnea on exertion BP: 125 / 69 HR: Rhythm: Sinus Technical Quality: Fair MEASUREMENTS (Male / Female) Normal Values 2D ECHO LV Diastolic Diameter PLAX 4.5 cm 4.2 - 5.9 / 3.9 - 5.3 cm LV Systolic Diameter PLAX 3.0 cm LV Chamber Size 4.1 cm IVS Diastolic Thickness 1.1 cm 0.6 - 1.0 / 0.6 - 0.9 cm IVS Systolic Thickness 1.7 cm LVPW Diastolic Thickness 1.1 cm 0.6 - 1.0 / 0.6 - 0.9 cm LVPW Systolic Thickness 1.3 cm RV Chamber Size 3.8 cm LVOT Diameter 2.1 cm LV Ejection Fraction 2D Teich 61.2 % LV Ejection Fraction MOD 2C 74.6 % LV Ejection Fraction 2C AL 76.3 % LA Diameter 4.3 cm LA Width 3.4 cm LA Height 5.9 cm RA Width 3.1 cm RA Height 4.6 cm Aorta at Sinotubular Diameter 2.6 cm M-MODE LV Diastolic Diameter MM 5.3 cm 4.2 - 5.9 / 3.9 - 5.3 cm LV Systolic Diameter MM 2.8 cm LV Ejection Fraction MM Teich 76.9 % IVS Diastolic Thickness MM 1.1 cm 0.6 - 1.0 / 0.6 - 0.9 cm IVS Systolic Thickness MM 1.5 cm LVPW Diastolic Thickness MM 1.2 cm 0.6 - 1.0 / 0.6 - 0.9 cm LVPW Systolic Thickness MM 1.8 cm RV Diastolic Diameter MM 1.5 cm Aortic Annulus Diameter 3.2 cm LA Ao Ratio MM 1.6 MV E Point Septal Separation 0.4 cm DOPPLER AV Peak Velocity 196.0 cm/s LVOT Peak Velocity 122.0 cm/s AV Area Cont Eq vti 2.5 cm squared AV Area Cont Eq pk 2.1 cm squared MV Area PHT 5.0 cm squared Mitral E to A Ratio 1.0 MV E' Velocity 45.0 cm/s Mitral E to MV E' Ratio 6.5 Mitral E to LV E' Lateral Ratio 5.8 Mitral E to LV E' Septal Ratio 7.3 TR Peak Velocity 230.0 cm/s TR Peak Gradient 21.2 mmHg TV Peak E Velocity 79.0 cm/s Right Atrial Pressure 3.0 mmHg Pulmonary Artery Systolic Pressu 24.2 mmHg PV Peak Velocity 81.0 cm/s RV Acceleration Time 0.1 s RV Ejection Time 0.3 s RV AcT/ET 0.2 FINDINGS Left Ventricle Normal left ventricular size. LV systolic function is normal with EF of 55-60%. No regional wall motion abnormalities. Normal diastolic function Right Ventricle The right ventricle is normal in size and function. Right Atrium The right atrium is normal in size. Left Atrium The left atrium is dilated Mitral Valve Structurally normal mitral valve without significant stenosis or prolapse. There is trace mitral regurgitation. Aortic Valve Structurally normal aortic valve without significant sclerosis or stenosis. There is no aortic regurgitation. Tricuspid Valve Structurally normal tricuspid valve without significant stenosis or regurgitation. Insufficient TR jet to calculate RVSP Pulmonic Valve Structurally normal pulmonic valve without significant stenosis. There is no pulmonic regurgitation. Pericardium Normal pericardium without effusion. Aorta Normal ascending aorta dimension. CONCLUSIONS LV systolic function is normal with EF of 55-60% Diastolic function is normal Left atrium is dilated Trace mitral regurgitation No comparison studies are available Salvador Reno MD (Electronically Signed) Final Date: 06 October 2020 15:13 S
[2020-10-07] VITALS (28 sets, daily range): BP systolic 126–155; BP diastolic 68–89; PULSE 54–70; RESP 10–29; TEMP 36.8; O2SAT 87–95
[2020-10-07 05:17] LABS: Anion Gap 12.5 (5-19); Blood Urea Nitrogen 12 mg/dL (6-20); Calcium 7.9 mg/dL (8.5-10.5); Carbon Dioxide 24 mmol/L (22-29); Chloride 106 mmol/L (98-107); Creatinine Clr Calc Pharmacy 67.2718; Glomerular Filtration Rate 51.9 mL/min (90-130); Glucose 102 mg/dL (65-115); Osmolality Calculated 286 mOsm/kg (285-295); Potassium 4.5 mmol/L (3.5-5.1); Sodium 138 mmol/L (136-145)
[2020-10-07] MEDS: sodium chloride 0.9% 1,000 ML 50 ML IV (06:20)
[2020-10-07] MEDS: diphenhydrAMINE 50 mg Capsule PO (08:11)
[2020-10-07] MEDS: metoprolol tartrate 25 mg Tablet 12.5 MG PO (08:11)
[2020-10-07] MEDS: aspirin 325 mg Tablet PO (08:11)
[2020-10-07] MEDS: pantoprazole DR 40 mg Tablet PO (08:11)
--- NOTE | 2020-10-07 09:00 | XACV_ITS ---
Exam Room: [facility] Ht: 178 cm Wt: 100 kg BSA: 2.25 m2 Gender: Male : 1960 Any Known Allergies: No known allergies Exam Priority: Routine Procedure(s): Procedure Description: Diagnostic procedure Procedure Description: Left Heart Catheterization Procedure Description: Left ventriculography Procedure Description: Coronary Angiography Diagnostic Cath Status: Urgent Diagnostic Findings * Indication: New onset angina/troponin elevation. * No significant disease noted in the Left Main, Left Anterior Descending, Right or Circumflex coronary arteries. Diffuse mild luminal irregularities are seen. * Coronary angiography shows right dominance. Conclusions 1. Elevated LVEDP. 2. No significant disease noted in the Left Main, Left Anterior Descending, Right or Circumflex coronary arteries. Diffuse mild luminal irregularities are seen. 3. Normal left ventricular systolic function. Ejection fraction of 60%. Recommendations * Transferred back to [facility]. * Aggressive risk factor modification. * Symptoms likely secondary to coronary spasm versus GERD. We will start low-dose amlodipine 2.5 mg daily. Continue metoprolol 25 mg twice daily. * Aspirin. * Outpatient cardiology follow-up in 4 weeks. Interventional RX Recommendation: medical therapy and/or counseling Diagnostic RX Recommendation: medical therapy and/or counseling Anticoagulation: Heparin Ventriculography Ejection Fraction: 60.0 % Pressures Phase:Rest AO : 137 / 89 ( 113 ) @ 8:15:00 AM 178 / 91 ( 127 ) @ 8:21:00 AM 179 / 92 ( 128 ) @ 8:21:00 AM 182 / 94 ( 129 ) @ 8:21:00 AM LV : 183 / 0 / 32 @ 8:20:00 AM 183 / 0 / 31 @ 8:21:00 AM 180 / 0 / 31 @ 8:21:00 AM Valves Phase:DefaultPhase AV : 2.0 @ 9:27:09 AM AV Mean Gradient: 0.0 @ 9:27:09 AM Clinical Evaluation EBL: 5mL-10mL Procedural Details Pre-Procedure Time Out. Identified patient by full name and date of as verbalized by the patient/guarantor. Does the consent match the physician's order: Yes. Accurate & Complete Informed Consent: Yes. Inpatient/Outpatient History & Physical on Chart: Yes. If H&P is completed, is and addenduem needed: No. Visualize and Verify Site with Patient/Guarantor: N/A. Relevant Radiology Images available: Yes. Pre-op teaching completed and patient verbalized understanding. The risks, benefits, and alternatives of sedation and/or procedure were discussed by physician. The patient agrees to continue. Procedure started. Correct patient, site and procedure confirmed by cath team. Current diagnosis: Unstable angina. PERRLA. Strong, equal hand white metal corrosion proofer bilaterally. Lungs clear x 5 lobes. IV Site on Arrival: 20 gauge in the right forearm. IV Fluids: 0.9% NaCl at KVO. 200 mL infused prior to quality assurance qa lab analyst. Pre Procedural Pulses: bilateral dorsalis pedis was 3+. Pre Procedural Pulses: bilateral posterior tibial was 3+. Pre Procedural Pulses: bilateral radial was 3+. Oxygen started at 2liters/min via nasal canula. right groin was prepped with chloroprep then draped in the usual sterile fashion. right radial was prepped with chloroprep then draped in the usual sterile fashion. Physician notified. Baseline sample Acquired. HR: 64 BPM. Patient's family unavailable. Equipment: 6F - Radial. Cardiac Cath Pack. ACIST Manifold Kit Model BT 2000. Heparinized Saline (2 units/mL), 1000 mL bag. [facility] Clinical Fraility Score: 2: Well. Comptroller Indications: Worsening Angina. Chest Pain Symptom Assessment: Typical Angina Symptoms. Cardiovascular Instability: No. Physician arrived. Physician scrubbed in. Immediate Pre-Procedure Time Out. Correct Patient: Yes; Correct Procedure: Yes; Correct Site: Yes; Correct Patient Position: Yes; Correct Supplies: Yes; Dried Flammable Prep: Yes; Blood Products Available: N/A;. Lidocaine 1% infiltrated to the right radial. Arterial access obtained. A 5 ukrainian TIG catheter in over wire. Catheter redirected to the RCA. Catheter removed over the exchange wire. A 5 ukrainian Angled Pig catheter in over wire. EDP Sample taken: LV 183/0,32; HR: 67 BPM; SpO2: 96%. LV gram performed in [place] @ 10 mL/second for a total of 30 mL. EDP Sample taken: LV 183/0,31; HR: 60 BPM; SpO2: 96%. Pullback taken: LV 180/-1,31; AO 178/91(127); Mean: 0mmHg, Peak to Peak: 2mmHg, SEP: 16sec/min; HR: 60 BPM; SpO2: 97%. Catheter removed over the exchange wire. Physician scrubbed out. Post Procedure: Pulses reassessed and unchanged. PERRLA. Strong, equal hand white metal corrosion proofer bilaterally. No VTE prophylaxis required. Medication's Wasted: Lidocaine 1% = 18 mL. Medication's Wasted: Nitro = 49.8 mg. Medication's Wasted: Heparin = 1000 units. Total IV fluids: 50 mL. A TR Band was successful obtaining hemostatsis at the Right Radial artery insertion site. TR band placed. Hemostasis obtained. Contrast type used: Omnipaque 300 mgI/mL, 500 mL bottle. Post-op diagnosis: non obstructive cad. Complications: none. Estimated blood loss: 5mL-10mL. Procedure completed. Patient transferred by wheelchair to 1st floor. Vital chart was stopped. Access Site Site: Right Radial artery Sheath Size: 6 Fr Hemostasis Method: TR Band Hemostasis Success: Successful Procedure Medications Start: 9:08 AM Stop: 9:08 AM Medication: Versed Amount: 1 mg Route: I.V. Start: 9:08 AM Stop: 9:08 AM Medication: Fentanyl Amount: 50 mcg Route: I.V. Start: 9:12 AM Stop: 9:12 AM Medication: Nitrogylcerin Amount: 200 mcg Route: I.A. Start: 9:14 AM Stop: 9:14 AM Medication: Heparin Amount: 5000 units Route: I.V. Start: 9:17 AM Stop: 9:17 AM Medication: Versed Amount: 1 mg Route: I.V. Start: 9:17 AM Stop: 9:17 AM Medication: Fentanyl Amount: 50 mcg Route: I.V. I, the attending physician, have reviewed and verified all procedure medications. Yes, all medications given per verbal order History/Risk Factors Hypertension: No Dyslipidemia: No Peripheral Arterial Disease (PAD): No Myocardial Infarction (AR): No Obesity: Yes Renal Disease: No Tobacco Use: Never Prior Interventions PCI: No CABG: No Valve Surgery: No Report Signatures Finalized by Salvador Reno MD on 10/18/2020 10:26 AM
--- NOTE | 2020-10-07 09:07 | W.PM.OPSUD ---
Surgery/Procedure H&P Update DATE OF PROCEDURE: October 07, 2020 DATE H&P PERFORMED: 10/06/20 H&P UPDATE INFORMATION: I have reviewed H&P completed within last 30 days, I have examined patient prior to procedure and No changes to prior documentation PREOP DIAGNOSIS: Worsening angina PRIMARY INDICATION FOR PROCEDURE: Worsening angina PLANNED PROCEDURE: Operation Date: 10/07/20 09:00 Proposed Procedures p Cardiac Catheterization(Not Applicable) - Salvador Reno M.D Possible percutaneous coronary intervention PATIENT REASSESSED PRIOR TO SEDATION, WITH NO CHANGE NOTED: Yes PHYSICAL EXAM: alert, oriented x 3, clear to auscultation bilaterally and regular rate & rhythm AIRWAY EVAL/ANESTHESIA PLAN: ASA III, Monitored Anesthesia, Local Anesthesia, Risks, benefits & alternatives of sedation and/or procedure discussed and Patient agrees to continue as planned
--- NOTE | 2020-10-07 09:41 | P.PN_ITS ---
Subjective Subjective: Interval history: Patient is overall doing well. He underwent coronary angiogram that did not reveal significant coronary artery disease. His LVEDP was elevated. Blood pressure has fluctuated and is uncontrolled. Vitals/I&O/Wt Last Vital Signs Temp 98.2 F 10/07/20 07:44 Pulse 61 10/07/20 07:46 Resp 20 H 10/07/20 07:44 BP 144/82 10/07/20 07:44 Pulse Ox 93 10/07/20 07:44 10/06/20 10/07/20 10/07/20 22:59 06:59 14:59 Intake Total 235 / 1945.0 1882 / 3827.0 Output Total 825 / 1175 2225 / 3400 550 / 550 Balance -590 / 770.0 -343 / 427.0 -550 / -550 Weight last 48 hrs Weight 220 lb Physical Exam Narrative: EXAM NARRATIVE: GENERAL: Patient is alert, awake and oriented x3. [] NECK: No jugular vein distension. [] HEENT: No cyanosis. No icterus. No pallor. [] HEART: Regular S1 and S2. No murmur, rub or gallop. [] LUNGS: Clear to auscultate bilaterally. [] ABDOMEN: Soft, nontender and nondistended. Positive bowel sounds. No guarding, rebound or tenderness. [] CENTRAL NERVOUS SYSTEM: Grossly nonfocal. [] EXTREMITIES: Lower extremities with 1+ edema bilaterally. Pulses palpable in the lower extremities, both dorsalis pedis and posterior tibial. [] Data : 10/06/20 05:00 10/07/20 04:35 A&P Assessment and plan (1) GERD (gastroesophageal reflux disease): Status: Acute (2) Acute kidney injury: Status: Acute (3) Chest pain: Status: Acute (4) Hypertension: Status: Acute Patient underwent coronary angiogram that revealed no significant coronary artery disease. His LVEDP was elevated. Medical management for now. His symptoms could be related to GERD or coronary spasms. We will start him on low-dose amlodipine 2.5 mg daily. Continue metoprolol 25 mg twice daily. I have asked him to keep a log of his blood pressure readings and as outpatient will need to be addressed as his hypertension was uncontrolled. Continue aspirin. Echocardiogram formalin showed normal LV systolic function. No significant valvular heart disease is seen. Patient is stable to be discharged from cardiology standpoint. Thank you for involving us with care of this patient. We will see him as outpatient. Attestations Medical Necessity Statement*: Care expected to cross 2 midnights. Coding Level of Care Code Acute Dairy Department Manager for [facility] Fwd Diagnoses GERD (gastroesophageal reflux disease) K21.9 Acute kidney injury N17.9 Chest pain R07.9 Hypertension I10
--- NOTE | 2020-10-07 14:58 | PM.DCS ---
Discharge Providers Date of Admission: 10/06/20 19:15 Date of Discharge: October 07, 2020 Attending Provider at Admission: Christian Mendez Attending Provider at Discharge: Christian Mendez Primary Care Provider: Val Chisholm MD Diagnoses at Discharge Discharge Diagnosis (1) Chest pain: Status: Acute (2) Troponin level elevated: Status: Acute (3) Acute kidney injury: Status: Acute (4) GERD (gastroesophageal reflux disease): Status: Acute (5) Recurrent headache: Status: Acute (6) Leukocytosis: Status: Acute (7) Chronic cough: Status: Acute Reason for Visit Reason for Visit: CP W/EXERTION, HTN, IRR HEART RATE Hospital Course Hospital Course Pleasant 60-year-old gentleman presented after a 2-hour episodes of chest pain, with noted recurrent dyspnea exertion and fatigability of at least a month duration, with episode of chest pain not resolving with rest occurring after working outside, with noted elevated blood pressures at presentation, and intermittently elevated during the hospitalization, on work-up with noted hypercholesterolemia, with obesity being risk factors of coronary artery disease. At presentation chest x-ray was unremarkable. D-dimer was normal. Troponin noted moderately elevated with mild downtrend 55-46.1-36.65. He reported heartbeat was noted irregular by his blood pressure monitor, but no sign of arrhythmia noted on EKG. He was monitored telemetry while in the hospital. He underwent additional assessment by coronary angiography with finding of nonobstructive CAD. Per cardiology recommendation he is continued on aspirin, he is also continued on metoprolol, amlodipine for hypertension, he is asked to monitor his blood pressures to allow for optimization. He is not started on statin currently as on presentation he was noted to have minimal CK elevation 362, after working outside with dehydration. He was also noted to have acute on chronic kidney disease and/or chronic kidney disease, creatinine 1.7, with improvement with gentle fluid challenge, down to as low as 1.4. Ultrasound of the kidneys revealed atrophic cortex. Chronic any disease will need follow-up. Please optimize risk factors including hypertension. He also takes Excedrin multiple times a day for recurrent headaches. Possibly contributing. Consider referral to nephrology. Please recheck CK for resolution and start statin. On presentation he also reported longstanding GERD, he started on PPI. Please refer him for additional endoscopic evaluation which she has never had, with longstanding GERD to exclude malignancy. He also reported chronic cough, which may be related to the GERD, but with dyspnea on exertion, please consider and refer him for pulmonary function testing for additional assessment. Please revisit with him regarding chronic tremor which he also reports. Physical Exam Narrative: EXAM NARRATIVE: in the room Const: COMMON NORMALS: no acute distress and patient oriented x3 NUTRITIONAL APPEARANCE: overweight HENMT: COMMON NORMALS: oropharynx normal Neck/C-Spine: COMMON NORMALS: no JVD Resp: COMMON NORMALS: normal respiratory effort and clear to auscultation bilaterally AUSCULTATION: clear to auscultation bilaterally Cardio: COMMON NORMALS: no JVD, regular rhythm, S1 normal heart sound present, S2 normal heart sound present and No murmurs present (Cardio) RHYTHM: regular rhythm HEART SOUNDS: S1 normal heart sound present and S2 normal heart sound present GI: COMMON NORMALS: Normal to inspection, nondistended, normoactive bowel sounds present, Soft to palpation and non-tender PALPATION: Yes Soft to palpation Extremity: COMMON NORMALS: no joint enlargement and no pedal edema Neuro: COMMON NORMALS: patient oriented x3 and moves all extremities Skin: COMMON NORMALS: no rashes or lesions noted GENERAL SKIN EXAM: no rashes or lesions noted Discharge Data Data Completed and Pending: Completed Studies During Hospitalization Category Date Time Status XR chest 1V aldair ble [id number] Urgent Exams 10/05/20 13:32 Completed CV. 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 Routin e Exams 10/07/20 09:00 Ordered Basic Metabolic P ayesha AM LABS Lab 10/08/20 04:00 Ordered Basic Metabolic P ayesha AM LABS Lab 10/09/20 04:00 Ordered Labs from last 24 hours 10/07/20 04:35 Sodium 138 Potassium 4.5 Chloride 106 Carbon Dioxide 24 Anion Gap 12.5 BUN 12 Creatinine 1.4 H GFR Calculation 51.9 L Glucose 102 Calculated Osmolal ity 286 Calcium 7.9 L Vitals: Last Vital Signs Temp 98.2 F 10/07/20 07:44 Pulse 61 10/07/20 11:00 Resp 17 10/07/20 11:00 BP 137/71 10/07/20 11:00 Pulse Ox 92 10/07/20 11:00 Discharge Plan Discharge Patient Disposition: Home Condition: Stable Prescriptions: New amlodipine 2.5 mg tablet 2.5 mg PO DAILY Qty: 90 RF: 0 metoprolol succinate 25 mg tablet extended release 24 hr 25 mg PO DAILY Qty: 90 RF: 0 pantoprazole 40 mg Tablet,Delayed Release (Dr/Ec) 40 mg PO BID Qty: 180 RF: 0 aspirin 81 mg tablet,delayed release (DR/EC) 81 mg PO DAILY Qty: 90 RF: 0 No Action No Known Home Medications RF: 0 Discharge Orders: Discharge Order (Routine); Ordered 10/07/20 Ordered By: Christian Mnedez Referrals: Val Chisholm MD [Primary Care Provider] - 4-7 days Salvador Reno M.D [Physician] - 1 month Sandra Bonilla FNP [Nurse Practitioner] - 1 week Discharge Diet: Cardiac Discharge Activity: Increase activity as tolerated Patient Instructions: Metoprolol (By mouth), Aspirin (By mouth), Amlodipine (By mouth), Coronary Artery Disease (GEN), Chronic Kidney Disease (GEN), Gastroesophageal Reflux Disease (GEN), Chronic Hypertension (GEN), Opioid Safety Activity Restrictions/Additional Instructions: Please discuss regarding coronary artery disease with your primary care doctor. Please continue to work to optimize risk factors. Please note that your blood pressure has been noted elevated in the hospital. You are started on metoprolol and amlodipine to help with management of blood pressure. Monitor your blood pressure at home 3 times daily, write down values to bring to your appointment. Please also note that your cholesterol is found elevated in the hospital. You are not yet started on cholesterol medication due to elevated CK found on presentation, possibly secondary to dehydration from working outside. Please follow-up with your primary doctor and discuss starting cholesterol medication after follow-up of CK is normal. Cluster medication is important to reduce mortality from cardiovascular disease. Please discuss with your primary doctor referral for additional endoscopic assessment of longstanding reflux disease and exclude presence of malignancy. You are started on acid michael medication. Discussed with your primary doctor testing for H. pylori. Please follow-up with your primary doctor and discuss chronic kidney disease noted in the hospital, possibly with component of acute kidney injury. Possibly secondary to episodic hypertension. Please avoid any NSAIDs like ibuprofen, Aleve, etc. Please stop or avoid excessive use of Excedrin which may contribute to causing chronic kidney disease in some cases. Please follow-up with your primary doctor regarding chronic cough. Please discuss and consider referral for pulmonary function testing to closer assess regarding possible chronic lung disease as the cause of the chronic cough. Please follow-up with your primary doctor regarding chronic shoulder pain. Avoid lifting more than 3 pounds for 2 days after the coronary angiogram. Seek medical attention in case experiencing nonresolving chest pain again, or any other concerning symptoms. Discuss with your primary doctor regarding chronic tremor. Discharge Attestations Time Spent in Discharge Care*: greater than 30 min Quality Metrics Clinical Quality Measures During this hospital stay, did patient experience: None Coding Level of Care Code Acute g [facility] note Diagnoses Chest pain R07.9 Troponin level elevated R77.8 Acute kidney injury N17.9 GERD (gastroesophageal reflux disease) K21.9 Recurrent headache R51.9 Leukocytosis D72.829 Chronic cough R05
== END 2020-10-07 15:39 | disposition home or self-care (01) ==
LOC: ER 17:18 → CSU 10-06 08:18
PROVIDERS: Internal Medicine; Physician Assistant; Admitting Provider Internal Medicine; Emergency Provider Family Medicine; PCP Family Medicine; Visit Provider Internal Medicine
DX: R07.9 Chest pain, unspecified (principal); R77.8 Other specified abnormalities of plasma proteins; N17.9 Acute kidney failure, unspecified; K21.9 Gastro-esophageal reflux disease without esophagitis; R51.9 Headache, unspecified; D72.829 Elevated white blood cell count, unspecified; R05 Cough; I25.10 Atherosclerotic heart disease of native coronary artery without angina pectoris; Z87.11 Personal history of peptic ulcer disease; Z83.3 Family history of diabetes mellitus
CPT/HCPCS: 36415; 71045; 76770; 76857; 80048; 80053; 80061; 81003; 82550; 82570; 83036; 84300; 84484; 85025; 85378; 93005; 93306; 93452; 99285; C1769; C1887; C1894; G0378; J1644; J2250; J3010; J3490; J7030; Q0163; Q9967

== ENCOUNTER → 2020-11-19 11:25 | Outpatient (BNVA) | payer OTHER, SELFPAY | PROVIDERS: PCP Family Medicine; Visit Provider Family Medicine | DX: I10 Essential (primary) hypertension (principal); N17.9 Acute kidney failure, unspecified; K21.9 Gastro-esophageal reflux disease without esophagitis; Z68.34 Body mass index [BMI] 34.0-34.9, adult; Z71.89 Other specified counseling | CPT/HCPCS: 80053; 85025 ==

== ENCOUNTER 2020-12-19 13:29 | Outpatient (CLI) | payer OTHER, SELFPAY ==
--- NOTE | 2020-12-19 13:48 | XR_ITS ---
WS: [id number] Left shoulder, 2 views, 12/19/2020 Clinical Data: worsening pain both shoulders Comparison: None. Findings: No fractures or dislocations are seen. The AC joint is normal. The adjacent left clavicle, left scapu la and ribs are normal. The soft tissues are unremarkable. XR/XR shoulder LT min 2V* [id number] Impression: Negative left shoulder.
--- NOTE | 2020-12-19 13:48 | XR_ITS ---
WS: [id number] Right shoulder, 2 views, 12/19/2020 Clinical Data: worsening pain both shoulders Comparison: None. Findings: No fractures or dislocations are seen. The AC joint is normal. The adjacent right clavicle, right sca pula and ribs are normal. The soft tissues are unremarkable. XR/XR shoulder RT min 2V* [id number] Impression: Negative right shoulder.
== END 2020-12-19 13:30 | disposition home or self-care (01) ==
PROVIDERS: PCP Family Medicine; Visit Provider Family Medicine
DX: M19.011 Primary osteoarthritis, right shoulder (principal); M19.012 Primary osteoarthritis, left shoulder
CPT/HCPCS: 73030

== ENCOUNTER → 2021-01-15 08:20 | Outpatient (BNVA) | payer OTHER, SELFPAY | PROVIDERS: PCP Family Medicine; Visit Provider Internal Medicine | DX: Z01.812 Encounter for preprocedural laboratory examination (principal); Z20.822 Contact with and (suspected) exposure to COVID-19; Z85.038 Personal history of other malignant neoplasm of large intestine | CPT/HCPCS: 87635 ==

== ENCOUNTER 2021-01-21 06:28 | Day surgery (SDC) | payer OTHER, SELFPAY ==
[2021-01-16 13:35] VITALS: BMI 33.7
[2021-01-21 06:37] VITALS: BP 117/91; PULSE 89; RESP 18; TEMP 36.8; O2SAT 93
[2021-01-21] MEDS: sodium chloride 0.9% 1,000 ML 30 ML IV (06:53)
--- NOTE | 2021-01-21 07:20 | P.HP_ITS ---
Same Day Surgery H&P Indication for Procedure/HPI DATE OF PROCEDURE: January 21, 2021 CHIEF COMPLAINT/INDICATIONFOR SURGICAL PROCEDURE: Chronic heartburn and history of carcinoma in situ of the colon PREOP DIAGNOSIS: His colon cancer PLANNED PROCEDRUE: Operation Date: 01/21/21 07:30 Proposed Procedures p EGD/colon 48375 G0105 Z85.038(Not Applicable) - Reji Diaz MD s Colonoscopy(Not Applicable) - Reji Diaz MD Medications/Allergies* Home Medications Medication Instructions Recorded Confirmed Type pantoprazole 40 mg tablet,delayed 40 mg PO .once daily tab 11/19/20 01/21/21 History release Allergies/Adverse Reactions Allergy/AdvReac Type Severity Reaction Status Date / Time No Known Allergies Allergy Verified 01/16/21 13:33 Current Medications: Generic Name Dose Route Start Last Admin Trade Name Freq PRN Reason Stop Dose Admin Sodium Chloride 1,000 mls @ 30 mls/hr 01/21/21 06:45 01/21/21 06:53 Sodium Chloride 0.9% IV 01/22/21 06:44 30 mls/hr .Q24H SHELLY Administration Pertinent History/Comorbid Conditions* Medical History (Updated 01/02/21 @ 13:30 by Reji Diaz MD) Chest pain Chronic cough Chronic shoulder pain Essential hypertension GERD (gastroesophageal reflux disease) GI bleeding Gout History of alcohol abuse Hypercholesteremia Osteoarthritis of shoulders, bilateral PUD (peptic ulcer disease) Recurrent headache Resting tremor Surgical History (Updated 10/05/20 @ 19:56 by Christian Mendez MD) H/O shoulder surgery L Family History (Updated 10/05/20 @ 19:57 by Christian Mendez MD) Diabetes Social History Smoking and tobacco status: never smoked Alcohol intake: current Alcohol intake frequency: few times a week Lives independently: Yes Household members: spouse Marital status: Pertinent Exam Findings alert, oriented x 3, clear to auscultation bilaterally, regular rate & rhythm, operative site marked and procedure specific exam findings Recommendations Surgery/Procedure today Coding Level of Care Code Acute Individual Pension Adviser for [facility]
--- NOTE | 2021-01-21 07:27 | ANES.PREANE2 ---
Pre-Anesthetic Assessment Pre-Anesthetic Assessment: Height/Weight: Height 5 ft 10 in Weight 106.594 kg Temp Pulse Resp BP Pulse Ox 98.2 F 89 18 117/91 93 01/21/21 06:37 01/21/21 06:37 01/21/21 06:37 01/21/21 06:37 01/21/21 06:37 Preop Diagnosis: His colon cancer Proposed Procedure: Operation Date: 01/21/21 07:30 Proposed Procedures p EGD/colon 31009 G0105 Z85.038(Not Applicable) - Reji Diaz MD s Colonoscopy(Not Applicable) - Reji Diaz MD Was Beta Jeanne taken within 24 hours: Yes Was Clonidine taken within 24 hours: N/A Last intake: Intake Last Liquid Date 01/20/21 Last Liquid Time 20:00 Last Solid Date 01/19/21 Last Solid Time 17:00 Social: Social History: Alcohol (beer) Exam: Pre-Anes Outpt Exam: alert, oriented x 3, clear to auscultation bilaterally and regular rate & rhythm Airway: Submandibular: WNL Cervical ROM: WNL MP: 2 History/ROS: No significant history except as noted Pulmonary: Pulmonary: Cough CV/HEM: CV/HEM: HTN : : None reported Hepatic: Hepatic: None reported GI: GI: GERD Metabolic: Metabolic: Hyperlipidemia Musc/skel: Musc/skel: OA/DJD Neuropsych: Neuropsych: None reported Anesthetic Plan: ASA status: 2 Anesthesia: Anesthesia Evaluation and MAC Risk of > 500 ml blood loss (7ml/kg in children): No Meds/Allergies Current Medications: Current Medications Generic Name Dose Route Start Last Admin Trade Name Freq PRN Reason Stop Dose Admin Sodium Chloride 1,000 mls @ 30 ml s/hr 01/21/21 06:45 01/21/21 06:53 Sodium Chloride 0.9% IV 01/22/21 06:44 30 mls/hr .Q24H SHELLY Administration PFSH Anesthesia PFSH: Medical History Chest pain Chronic cough Chronic shoulder pain Essential hypertension GERD (gastroesophageal reflux disease) GI bleeding Gout History of alcohol abuse Hypercholesteremia Osteoarthritis of shoulders, bilateral PUD (peptic ulcer disease) Recurrent headache Resting tremor Surgical History H/O shoulder surgery L Family History Other Diabetes Social History Smoking and tobacco status: never smoked Alcohol intake: current Alcohol intake frequency: few times a week Lives independently: Yes Household members: spouse Marital status: Data Anesthesia Cardiac Studies: Echocardiogram 10/06/20
[2021-01-21 07:52] VITALS: BP 107/64; PULSE 84; RESP 16; TEMP 36.3; O2SAT 93
[2021-01-21 08:07] VITALS: BP 125/68; PULSE 68; RESP 16; O2SAT 94
--- NOTE | 2021-01-21 12:22 | ANE.PACU2 ---
Inpatient post-anesthesia follow up: Airway intact: Yes Vital signs: Temperature 97.4 F Pulse Rate 68 Respiratory Rate 16 Blood Pressure 125/68 Pulse Oximetry 94 Oxygen Delivery Me thod Room Air Oxygen Flow Rate 3 Fraction of Inspir ed Oxygen Hydration adequate: Yes Nausea and vomiting: No Pain level: 1 Mental status: Baseline
[2021-01-22 05:53] LABS: H. Pylori / CLO Test Negative
== END 2021-01-21 08:20 | disposition home or self-care (01) ==
PROVIDERS: PCP Family Medicine; Visit Provider Internal Medicine
PROC: 0DJ08ZZ Inspection of Upper Intestinal Tract, Via Natural or Artificial Opening Endoscopic (ICD-10-PCS; CPT 43235; principal; 2021-01-21 07:30)
PROC: 0DJD8ZZ Inspection of Lower Intestinal Tract, Via Natural or Artificial Opening Endoscopic (ICD-10-PCS; CPT 45378; 2021-01-21 07:30)
DX: Z12.11 Encounter for screening for malignant neoplasm of colon (principal); Z85.038 Personal history of other malignant neoplasm of large intestine; K57.30 Diverticulosis of large intestine without perforation or abscess without bleeding; K29.70 Gastritis, unspecified, without bleeding; I10 Essential (primary) hypertension; E78.5 Hyperlipidemia, unspecified; M19.90 Unspecified osteoarthritis, unspecified site; K21.9 Gastro-esophageal reflux disease without esophagitis; E78.00 Pure hypercholesterolemia, unspecified; Z87.11 Personal history of peptic ulcer disease
CPT/HCPCS: 43239; 45378; 87077; 96360; J2704; J7030

== ENCOUNTER 2021-11-19 17:00 | Outpatient (CLI) | payer OTHER, SELFPAY ==
--- NOTE | 2021-11-19 17:15 | US_ITS ---
WS: [id number] TESTICULAR ULTRASOUND HISTORY: testicular pain and swelling COMPARISON: None available. TECHNIQUE: Real-time and color Doppler imaging or utilized to perform a testicular ultrasound. Right testicle: 3.5 cm x 2.6 cm x 1.7 cm. Normal sized testicle. Mild nodularity of the surface is probably from age-related changes and may be prior episodes of inflammation. No inflammation at this time. Normal vascularity. Normal color Doppler is present throughout. Systolic and diastolic velocities are both present. No significant hydrocele. Right epididymis: Normal epididymis with no increased vascularity. Left testicle: 3.5 cm x 1.0 cm x 0.9 cm. Normal sized testicle with marked increased vascularity. Surface of the testicle is irregular, simila r to the RIGHT testicle. No mass identified. No significant hydrocele. Left epididymis: Enlarged heterogeneous epididymis. There is an epididymal cyst measuring 5 x 5.7 mm. Small amount of fluid adjacent to the epididymis. US/US scrotum [id number] IMPRESSION: 1. Acute LEFT epididymo- orchitis. 2. No testicular mass or torsion.
== END 2021-11-19 17:01 | disposition home or self-care (01) ==
PROVIDERS: PCP Family Medicine; Visit Provider Family Medicine
DX: N50.89 Other specified disorders of the male genital organs (principal); N45.2 Orchitis
CPT/HCPCS: 76870

== ENCOUNTER → 2024-02-01 09:56 | Outpatient (BNVA) | payer OTHER, SELFPAY | PROVIDERS: PCP Family Medicine; Visit Provider Family Medicine | DX: I10 Essential (primary) hypertension (principal); T56.0X1D Toxic effect of lead and its compounds, accidental (unintentional), subsequent encounter; M10.10 Lead-induced gout, unspecified site | CPT/HCPCS: 80053; 84550; 85025 ==